=== PATIENT | female | born 2000 | race Caucasian/White ===

== ENCOUNTER 2018-11-03 13:54 | Emergency (ER) | payer OTHER, SELFPAY ==
[2018-11-03 13:50] VITALS: BP 126/68; PULSE 76; RESP 14; TEMP 36.8; O2SAT 98; BMI 25.4
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
--- NOTE | 2018-11-03 14:15 | PC.NURSE ---
Pt c/o left flank/rib pain.
[2018-11-03] MEDS: ACETAMINOPHEN 325 MG TABLET 975 MG PO (14:27)
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
[2018-11-03 16:01] VITALS: BP 104/76; PULSE 67; RESP 15; O2SAT 99
== END 2018-11-03 16:41 | disposition home or self-care (01) ==
PROVIDERS: Emergency Provider Nurse Practitioner Family
DX: S20.212A Contusion of left front wall of thorax, initial encounter (principal); V53.6XXA Passenger in pick-up truck or van injured in collision with car, pick-up truck or van in traffic accident, initial encounter
CPT/HCPCS: 71101; 81003; 81025; 99282; 99283